=== PATIENT | male | born 1960 | race Caucasian/White ===

== ENCOUNTER → 2020-01-05 | Outpatient (CLI) | payer BC ==
--- NOTE | 2020-01-05 11:55 | NM ---
EXAMINATION TYPE: NM stress cardiolite complete DATE OF EXAM: 01/05/2020 COMPARISON: NONE HISTORY: Abnormal EKG TECHNIQUE: After the intravenous administration of 8.6 mCi Tc 99m Sestamibi - Rest images obtained 4 5 minutes post injection. The patient exercised using a AAKASH protocol and 1 minute prior to peak e xercise was injected with 26.9 mCi Tc 99m Sestamibi - Stress images obtained 10 minutes post injectio n. FINDINGS: Targeted heart rate was achieved during performance of the study. Review of stress and rest SPECT izabela ges demonstrates no reversible perfusion abnormality. Multiple breast defects do not persist on stres s imaging and artifactual. Gated analysis shows normal wall motion with an estimated left ventricular ejection fraction of 66 %. TID is calculated within normal limits at 0.79. IMPRESSION: No scintigraphic evidence for reversible ischemia
--- NOTE | 2020-01-05 16:08 | EST ---
EXERCISE STRESS AGE: 59 SEX: Male. HT: 5'9" WT: 220 pounds PROTOCOL: Cardiolite treadmill STAGE: IV DURATION OF EXERCISE: 11:00 HEART RATE REST: 52 BLOOD PRESSURE REST: 113/74 MAXIMUM HEART RATE ACHIEVED: 144 MAXIMUM BLOOD PRESSURE: 170/68 85% MPHR: 136 100% MPHR: 160 METS: 12.1 INDICATIONS: Abnormal EKG CLINICAL INFORMATION: Baseline EKG shows sinus rhythm with poor R-wave progression. Patient exercised on Smooth protocol for a total of 11 minutes, achieving 12 METS, 90% of predicted maximum heart rate without chest pain or diagnostic ST-segment depression. Rare PVCs are noted at peak exercise. CONCLUSIONS: 1. Excellent exercise tolerance. 2. Negative stress tests by EKG criteria. MMODL / IJN: [id number] /
== END | disposition home or self-care (01) ==
LOC: RADNMMAIN 08:58
PROVIDERS: ATTEND Family Medicine
DX: R94.31 Abnormal electrocardiogram [ECG] [EKG] (principal)
CPT/HCPCS: 93017; 78452; A9500

== ENCOUNTER 2021-06-22 10:44 | Emergency (ER) | payer BC ==
[2021-06-22 10:59] VITALS: TEMP 98
[2021-06-22] MEDS ORDERED: SODIUM CHLORIDE 0.9% 1,000 ML IV STA (11:45)
[2021-06-22] MEDS ORDERED: SODIUM CHLORIDE 0.9% 500 ML 500 ML IV STA (11:45)
[2021-06-22] MEDS ORDERED: ALBUTEROL HFA INHALER INHALATION STA (11:46)
[2021-06-22] MEDS ORDERED: DEXAMETHASONE SOD PHOSPHATE 10 MG/ML 1 ML VIAL IV STA (11:46)
[2021-06-22 11:58] LABS: Basophils # (A) 0.1 k/uL (0-0.2); Basophils % (A) 1 %; Eosinophils % (A) 0 %; HCT 44.3 % (39.0-53.0); HGB 15.1 gm/dL (13.0-17.5); Lymphocytes # (A) 0.5 k/uL (1.0-4.8); Lymphocytes % (A) 12 %; MCH 31.6 pg (25.0-35.0); MCV 92.8 fL (80.0-100.0); Mean Platelet Volume 7.9; Monocytes # (A) 0.2 k/uL (0-1.0); Monocytes % (A) 6 %; Neutrophils # (A) 3.4 k/uL (1.3-7.7); Neutrophils % (A) 78 %; Platelet Count 230 k/uL (150-450); RBC 4.78 m/uL (4.30-5.90); RDW 13.9 % (11.5-15.5); WBC 4.4 k/uL (3.8-10.6)
--- NOTE | 2021-06-22 12:15 | ED ---
General Adult HPI - General Chief complaint: Shortness of Breath Stated complaint: COVID, weakness Time Seen by Provider: 06/22/21 11:21 Source: patient, RN notes reviewed Mode of arrival: ambulatory Limitations: no limitations - History of Present Illness Initial comments: This a 61-year-old male presents emergency Department chief complaint of shortne ss of breath. Patient states he was diagnosed with Covid recently. He states he had symptoms that started on the 15 of this month. Patient states that he was alert, and symptoms emergency started. He states she's been traveling a lot states that when he was driving home from [email or web address] from work he noticed that symptoms worsen. He states he felt very weak, increased shortness breath feels very tired, achy complain of mild headache. Patient states had a pulse ox at home which was in the upper 80s to low 90s and was concerned. - Related Data Home Medications Medication Instructions Recorded Confirmed Aspirin 162 mg PO DAILY PRN 06/22/21 06/22/21 Previous Rx's Medication Instructions Recorded Dexamethasone 6 mg PO DAILY #5 tablet 06/22/21 Allergies Allergy/AdvReac Type Severity Reaction Status Date / Time No Known Allergies Allergy Verified 06/22/21 12:02 Review of Systems ROS Statement: Those systems with pertinent positive or pertinent negative responses have been documented in the HPI. ROS Other: All systems not noted in ROS Statement are negative. Past Medical History Past Medical History: No Reported History History of Any Multi-Drug Resistant Organisms: None Reported Past Surgical History: Orthopedic Surgery Past Psychological History: No Psychological Hx Reported Smoking Status: Never smoker Past Alcohol Use History: None Reported Past Drug Use History: None Reported General Exam Limitations: no limitations General appearance: alert, in no apparent distress Head exam: Present: atraumatic, normocephalic, normal inspection Eye exam: Present: normal appearance, PERRL, EOMI. Absent: scleral icterus, conjunctival injection, periorbital swelling ENT exam: Present: normal exam, normal oropharynx, mucous membranes moist Neck exam: Present: normal inspection, full ROM. Absent: tenderness, meningismus, lymphadenopathy Respiratory exam: Present: normal lung sounds bilaterally. Absent: respiratory distress, wheezes, rales, rhonchi, stridor Cardiovascular Exam: Present: regular rate, normal rhythm, normal heart sounds. Absent: systolic murmur, diastolic murmur, rubs, gallop, clicks GI/Abdominal exam: Present: soft, normal bowel sounds. Absent: distended, tenderness, guarding, rebound, rigid Back exam: Absent: CVA tenderness (R), CVA tenderness (L) Neurological exam: Present: alert Skin exam: Present: warm, dry, intact, normal color. Absent: rash Course Vital Signs 06/22/21 06/22/21 06/22/21 10:55 14:02 14:04 Temperature 98 F Pulse Rate 77 71 74 Respiratory 22 20 Rate Blood Pressure 121/76 142/80 O2 Sat by Pulse 92 L 89 L 95 Oximetry 06/22/21 14:26 Temperature Pulse Rate 84 Respiratory Rate Blood Pressure O2 Sat by Pulse 92 L Oximetry Medical Decision Making - Medical Decision Making 61-year-old male presented for COVID-19. Patient x-ray does show bilateral infiltrates. Patient's pulse ox of the 92-93 pulse ox lowest was 92 while ambulating. Patient did have CT of the chest to rule out PE secondary to recent traveling and COVID-19 negative for PE. Labs otherwise unremarkable. Patient given dexamethasone, inhaler. Patient discharged in dexamethasone, albuterol inhaler return parameters were discussed. - Lab Data Result diagrams: 06/22/21 11:48 06/22/21 11:48 Lab Results 06/22/21 06/22/21 06/22/21 Range/Units 11:48 11:48 11:48 WBC 4.4 (3.8-10.6) k/uL RBC 4.78 (4.30-5.90) m/uL Hgb 15.1 (13.0-17.5) gm/dL Hct 44.3 (39.0-53.0) % MCV 92.8 (80.0-100.0) fL MCH 31.6 (25.0-35.0) pg MCHC 34.0 (31.0-37.0) g/dL RDW 13.9 (11.5-15.5) % Plt Count 230 (150-450) k/uL MPV 7.9 Neutrophils % 78 % Lymphocytes % 12 % Monocytes % 6 % Eosinophils % 0 % Basophils % 1 % Neutrophils # 3.4 (1.3-7.7) k/uL Lymphocytes # 0.5 L (1.0-4.8) k/uL Monocytes # 0.2 (0-1.0) k/uL Eosinophils # 0.0 (0-0.7) k/uL Basophils # 0.1 (0-0.2) k/uL PT 10.2 (9.0-12.0) sec INR 0.9 (<1.2) APTT 23.7 (22.0-30.0) sec D-Dimer 0.80 H (<0.60) mg/L FEU Sodium 138 (137-145) mmol/L Potassium 4.2 (3.5-5.1) mmol/L Chloride 103 (98-107) mmol/L Carbon Dioxide 24 (22-30) mmol/L Anion Gap 11 mmol/L BUN 18 (9-20) mg/dL Creatinine 0.80 (0.66-1.25) mg/dL Est GFR (CKD-EPI)AfAm >90 (>60 ml/min/1.73 sqM) Est GFR (CKD-EPI)NonAf >90 (>60 ml/min/1.73 sqM) Glucose 129 H (74-99) mg/dL Calcium 8.7 (8.4-10.2) mg/dL Magnesium 2.0 (1.6-2.3) mg/dL Total Bilirubin 0.5 (0.2-1.3) mg/dL AST 65 H (17-59) U/L ALT 46 (4-49) U/L Alkaline Phosphatase 48 (38-126) U/L Troponin I (0.000-0.034) ng/mL Total Protein 7.2 (6.3-8.2) g/dL Albumin 4.0 (3.5-5.0) g/dL 06/22/21 Range/Units 11:48 WBC (3.8-10.6) k/uL RBC (4.30-5.90) m/uL Hgb (13.0-17.5) gm/dL Hct (39.0-53.0) % MCV (80.0-100.0) fL MCH (25.0-35.0) pg MCHC (31.0-37.0) g/dL RDW (11.5-15.5) % Plt Count (150-450) k/uL MPV Neutrophils % % Lymphocytes % % Monocytes % % Eosinophils % % Basophils % % Neutrophils # (1.3-7.7) k/uL Lymphocytes # (1.0-4.8) k/uL Monocytes # (0-1.0) k/uL Eosinophils # (0-0.7) k/uL Basophils # (0-0.2) k/uL PT (9.0-12.0) sec INR (<1.2) APTT (22.0-30.0) sec D-Dimer (<0.60) mg/L FEU Sodium (137-145) mmol/L Potassium (3.5-5.1) mmol/L Chloride (98-107) mmol/L Carbon Dioxide (22-30) mmol/L Anion Gap mmol/L BUN (9-20) mg/dL Creatinine (0.66-1.25) mg/dL Est GFR (CKD-EPI)AfAm (>60 ml/min/1.73 sqM) Est GFR (CKD-EPI)NonAf (>60 ml/min/1.73 sqM) Glucose (74-99) mg/dL Calcium (8.4-10.2) mg/dL Magnesium (1.6-2.3) mg/dL Total Bilirubin (0.2-1.3) mg/dL AST (17-59) U/L ALT (4-49) U/L Alkaline Phosphatase (38-126) U/L Troponin I <0.012 (0.000-0.034) ng/mL Total Protein (6.3-8.2) g/dL Albumin (3.5-5.0) g/dL Disposition Clinical Impression: COVID-19 Disposition: HOME SELF-CARE Condition: Stable Instructions (If sedation given, give patient instructions): Coronavirus Disease 2019 (COVID-19) Additional Instructions: Please return to the Emergency Department if symptoms worsen or any other concerns. Prescriptions: Dexamethasone 6 mg PO DAILY #5 tablet Is patient prescribed a controlled substance at d/c from ED?: No Referrals: Demian Jones MD [Primary Care Provider] - 1-2 days Time of Disposition: 14:34
[2021-06-22 12:17] LABS: ALT 46 U/L (4-49); AST 65 U/L (17-59); African American GFR (CKD) >90 (>60 ml/min/1.73 sqM); Alkaline Phosphatase 48 U/L (38-126); Anion Gap 11 mmol/L; Blood Urea Nitrogen 18 mg/dL (9-20); Calcium 8.7 mg/dL (8.4-10.2); Carbon Dioxide 24 mmol/L (22-30); Chloride 103 mmol/L (98-107); Glucose 129 mg/dL (74-99); Non-African American GFR(CKD) >90 (>60 ml/min/1.73 sqM); Potassium 4.2 mmol/L (3.5-5.1); Sodium 138 mmol/L (137-145); Total Bilirubin 0.5 mg/dL (0.2-1.3); Total Protein 7.2 g/dL (6.3-8.2)
--- NOTE | 2021-06-22 12:19 | XR ---
EXAMINATION TYPE: XR chest 2V DATE OF EXAM: 06/22/2021 COMPARISON: Chest x-ray 06/26/2011 HISTORY: Difficulty breathing, Covid positive TECHNIQUE: Frontal and lateral views of the chest are obtained. FINDINGS: Patchy densities present within the lungs bilaterally. Right hemidiaphragm remains elevate d. Cardiac mediastinal silhouette is likely stable accounting for differences in rotation. No evident pneumothorax or pleural effusion. IMPRESSION: Findings are consistent with Covid pneumonia.
[2021-06-22 12:31] LABS: INR 0.9 (<1.2); Partial Thromboplastin Time 23.7 sec (22.0-30.0); Prothrombin Time 10.2 sec (9.0-12.0)
--- NOTE | 2021-06-22 13:30 | CT ---
EXAMINATION TYPE: CT chest angio for PE DATE OF EXAM: 06/22/2021 COMPARISON: Radiograph same day HISTORY: 61-year-old male SOB, recent Covid TECHNIQUE: Contiguous axial scanning of the chest performed with IV Contrast, patient injected with 1 00 mL of Isovue 370. Coronal/sagittal MIP reconstructions performed. CT DLP: 493.3 mGycm Automated exposure control for dose reduction was used. FINDINGS: Heart normal size without pericardial effusion. No flattening of the interventricular septum reflux o f contrast into the hepatic veins. Some LAD coronary artery calcifications are noted. Aortic root ectatic at 3.7 cm. Conventional arch vessel branching anatomy. There is satisfactory opacification of the pulmonary arterial system, there is diffuse breathing eliel on degrading the exam. No large central or definite lobar branch pulmonary embolus. Segmental and mor e distal arterial branches are essentially nondiagnostic and emboli in these locations cannot be excl uded on the basis of this exam. Scattered nonenlarged and a few borderline to mildly enlarged mediastinal lymph nodes measuring up to 1.2 cm lower left paratracheal region, likely reactive. Bilateral patchy and confluent groundglass opacities in keeping with COVID pneumonia. Small to moderate-sized hiatal hernia. Bones: [facility] within the lower thoracic spine. IMPRESSION: 1. PATCHY AND CONFLUENT BILATERAL GROUNDGLASS COMPATIBLE WITH COVID PNEUMONIA. 2. THE PATIENT WAS BREATHING DURING THE SCAN. NO DEFINITE LARGE CENTRAL OR LOBAR BRANCH PULMONARY EMB OLUS. SEGMENTAL AND MORE DISTAL ARTERIAL BRANCHES ARE NONDIAGNOSTIC AND EMBOLI IN THESE LOCATIONS CAN NOT BE EXCLUDED ON THE BASIS OF THIS EXAM. 3. SOME REACTIVE MEDIASTINAL LYMPHADENOPATHY MEASURING UP TO 1.2 CM. 4. SMALL TO MODERATE-SIZED HIATAL HERNIA.
[2021-06-22 14:03] VITALS: BP 142/80; RESP 20
[2021-06-22 14:27] VITALS: PULSE 84
== END 2021-06-22 14:49 | disposition home or self-care (01) ==
LOC: EC 10:44
DX: U07.1 COVID-19 (principal)
CPT/HCPCS: 99285; 96374; 96361 ×2; 36415; 94640; 93005; 85379; 80053; 83735; 84484; 85025; 85610; 85730; 71046; 71275; J1100; Q9967